=== PATIENT | male | born 1965 | race Caucasian/White ===

== ENCOUNTER 2018-02-05 22:59 | Emergency (ER) | payer SELFPAY ==
[~2018-02-05] VITALS: Ht 167.6 cm; Wt 97.1 kg
[2018-02-05 23:37] VITALS: Ht 167.6 cm; Wt 97.1 kg
[2018-02-06 01:49] VITALS: BP 158/103
== END 2018-02-06 01:49 | disposition home or self-care (01) ==
LOC: ED 22:59
DX: I16.0 Hypertensive urgency (principal); S61.012A Laceration without foreign body of left thumb without damage to nail, initial encounter; L08.9 Local infection of the skin and subcutaneous tissue, unspecified; W22.8XXA Striking against or struck by other objects, initial encounter; Y93.89 Activity, other specified; Y92.89 Other specified places as the place of occurrence of the external cause; Y99.8 Other external cause status
CPT/HCPCS: 90715